=== PATIENT | female | born 1970 | race Caucasian/White ===

== ENCOUNTER 2020-11-20 12:38 | Outpatient (NON) | payer OTHER, SELFPAY ==
[2020-11-20 23:29] LABS: SARS-CoV-2 RNA PCR Negative
== END 2020-11-20 12:39 ==
PROVIDERS: PCP Family Medicine; Visit Provider Physician Assistant
DX: R50.9 Fever, unspecified (principal); Z20.822 Contact with and (suspected) exposure to COVID-19
CPT/HCPCS: C9803; U0003

== ENCOUNTER 2022-03-17 02:32 | Day surgery (SDC) | payer BC, SELFPAY ==
[2022-03-05 14:00] VITALS: BMI 73.6
[2022-03-17 08:18] VITALS: BP 170/98; PULSE 88; RESP 20; TEMP 36.8; O2SAT 99
--- NOTE | 2022-03-17 08:36 | WPDANESEPPF ---
Anes - Initial Pre Proc Eval Procedure: Operation Date: 03/17/22 09:15 Proposed Procedures p Screening Colonoscopy - Nathan Reyes MD Date/Time: 03/17/22 08:36 Surgeon: Nathan Reyes MD Pre Op Diagnosis: neoplasm screening Patient Data Age: 51 Gender: F Height: 1.6 m Weight: 185.7 kg Last Vital Signs Temp 98.3 F 03/17/22 08:18 Pulse 88 03/17/22 08:18 Resp 20 03/17/22 08:18 BP 170/98 H 03/17/22 08:18 Pulse Ox 99 03/17/22 08:18 Allergies Allergy/AdvReac Type Severity Reaction Status Date / Time hydrocodone Allergy Severe Hallucinati Verified 03/17/22 08:16 ng Penicillins Allergy Severe throat Verified 03/17/22 08:16 swelling fish derived Allergy Intermediate Swelling Verified 03/17/22 08:16 of Lip/Tongue/Throat dog dander Allergy Mild Dry Eye Verified 03/17/22 08:16 AHKEE Allergy Mild THROAT Uncoded 03/17/22 08:16 SWELLING Home Medications Medication Instructions Recorded Confirmed Type bupropion HCl 300 mg 24 hr tablet, 300 mg PO QAM #90 tablet 04/17/21 03/05/22 Rx extended release metoprolol succinate 200 mg 200 mg PO DAILY #90 tablet 12/30/21 03/17/22 Rx tablet,extended release 24 hr fluticasone propionate 2 spray INTRANASAL DAILY PRN 03/05/22 03/05/22 History hydrochlorothiazide 12.5 mg PO DAILY 03/05/22 03/05/22 History lisinopril 10 mg PO DAILY 03/05/22 03/17/22 History uumexobg-maj-kgac-FA-lutein 1 tablet PO DAILY 03/06/22 03/06/22 History [Centrum Silver Women] omega-3 fatty acids [Fish Oil] 1,000 mg PO DAILY 03/06/22 03/06/22 History turmeric 400 mg PO DAILY 03/06/22 03/06/22 History vitamin E 400 unit PO DAILY 03/06/22 03/06/22 History Patient hx anesthesia problems: none Family hx anesthesia problems: none Results Review: All pre-operative results and documents have been reviewed as part of the pre-operative evaluation. [facility] Past Medical History Medical History (Updated 03/14/22 @ 15:55 by Qamar Roper DO) Anxiety Asthma Calculus of GB w/ obst w/o cystitis COVID-19 Depression Diffuse cystic mastopathy Eating disorder, unspecified Essential (primary) hypertension Family history of colonic polyps Mitral valve disorder Mixed hyperlipidemia DREW (obstructive sleep apnea) Surgical History Surgical History (Updated 03/14/22 @ 15:55 by Qamar Roper DO) History of appendectomy History of cholecystectomy Family History Family History (Reviewed 12/30/21 @ 11:13 by Anushka Okeefe [facility]) Father Family history of lung cancer Patient's father is in good health Malignant neoplasm of prostate Mother Family history of malignant neoplasm of thyroid Family history of colonic diverticulitis Other Carcinoma of colon Diabetes mellitus Social History Social History (System 02/20/22 @ 13:50 by Dorene Lanza) Smoking status: Never smoker Alcohol intake: current Substance use: never Substance use type: does not use Living arrangements: with family Spiritual care concerns: No Anes - Eval Final PreProcedure Day of Procedure 03/17/22 08:36 Patient weight: super morbidly obese (super super morbid obesity) Heart: regular rate and rhythm Lungs: clear to auscultation Airway: Mallampati scale class III Neurological: alert and oriented Last oral intake: >/= 8 hours ASA classification: IV Emergent: no Anesthetic plan: proceed Anesthesia type and monitoring: general GIVS and standard monitoring Results Review: All pre-operative results and documents have been reviewed as part of the pre-operative evaluation. Informed Consent: The patient's anesthetic plan and its attendant risks and benefits were discussed with the patient/family/POA. Questions were solicited and answers provided to the satisfaction of the patient/family/POA.
[2022-03-17] MEDS: LACTATED RINGERS 1,000 ML 150 ML IV CONT (08:38)
--- NOTE | 2022-03-17 08:51 | PM.HPGS ---
History of Present Illness History of Present Illness Consent: Risks, benefits, and alternatives have been discussed and questions answered. Patient agrees to proceed with procedure. Chief complaint: neoplasm screening Narrative: Lalitha Rodrigues is a 51 year old female here for first screening colonoscopy, mother had colon cancer 12-13 years ago. Review of Systems Constitutional: Constitutional: Denies headache(s) and Denies weakness Eyes: Eyes: Denies blurry vision ENT: Reports Normal hearing present, Denies headache(s) and Denies neck pain Cardiovascular: Cardiovascular: Denies chest pain and Denies dyspnea Respiratory: Respiratory: Denies dyspnea Gastrointestinal: Gastrointestinal: Reports no additional gastrointestinal complaints Genitourinary: Genitourinary: Denies dysuria Musculoskeletal: Musculoskeletal: Denies neck pain Integumentary/Breasts: Skin/Breast: Denies dry skin Neurologic: Reports Normal hearing present, Denies headache(s) and Denies weakness Psychiatric: Psychiatric: Denies anxiety Endocrine: Endocrine: Denies change in body appearance Hematologic/Lymphatic: Hematologic/Lymphatic: Denies easy bleeding Allergic/Immunologic: Allergic/Immunologic: Denies urticaria PMFSH Past Medical History Medical History (Updated 03/17/22 @ 08:52 by Nathan Reyes MD) Anxiety Asthma Calculus of GB w/ obst w/o cystitis COVID-19 Depression Diffuse cystic mastopathy Eating disorder, unspecified Essential (primary) hypertension Family history of colon cancer in mother Family history of colonic polyps Mitral valve disorder Mixed hyperlipidemia DREW (obstructive sleep apnea) Surgical History Surgical History (Updated 03/14/22 @ 15:55 by Qamar Roper DO) History of appendectomy History of cholecystectomy Family History Family History (Reviewed 12/30/21 @ 11:13 by Anushka Okeefe [facility]) Father Family history of lung cancer Patient's father is in good health Malignant neoplasm of prostate Mother Family history of malignant neoplasm of thyroid Family history of colonic diverticulitis Other Carcinoma of colon Diabetes mellitus Social History Social History (System 02/20/22 @ 13:50 by Dorene Lanza) Smoking status: Never smoker Alcohol intake: current Substance use: never Substance use type: does not use Living arrangements: with family Spiritual care concerns: No Meds Home Medications and Allergies Home Medications Medication Instructions Recorded Confirmed Type bupropion HCl 300 mg 24 hr tablet, 300 mg PO QAM #90 tablet 04/17/21 03/05/22 Rx extended release metoprolol succinate 200 mg 200 mg PO DAILY #90 tablet 12/30/21 03/17/22 Rx tablet,extended release 24 hr fluticasone propionate 2 spray INTRANASAL DAILY PRN 03/05/22 03/05/22 History hydrochlorothiazide 12.5 mg PO DAILY 03/05/22 03/05/22 History lisinopril 10 mg PO DAILY 03/05/22 03/17/22 History ifuivmee-ztt-wfzu-FA-lutein 1 tablet PO DAILY 03/06/22 03/06/22 History [Centrum Silver Women] omega-3 fatty acids [Fish Oil] 1,000 mg PO DAILY 03/06/22 03/06/22 History turmeric 400 mg PO DAILY 03/06/22 03/06/22 History vitamin E 400 unit PO DAILY 03/06/22 03/06/22 History Allergies Allergy/AdvReac Type Severity Reaction Status Date / Time hydrocodone Allergy Severe Hallucinati Verified 03/17/22 08:16 ng Penicillins Allergy Severe throat Verified 03/17/22 08:16 swelling fish derived Allergy Intermediate Swelling Verified 03/17/22 08:16 of Lip/Tongue/Throat dog dander Allergy Mild Dry Eye Verified 03/17/22 08:16 AHKEE Allergy Mild THROAT Uncoded 03/17/22 08:16 SWELLING Vital Signs Vital Signs - 24 hr 03/17/22 08:18 Temperature 98.3 F Pulse Rate 88 Respiratory Rate 20 Blood Pressure 170/98 H Pulse Oximetry 99 Exam Const: General: comfortable and no acute distress HENMT: General nose exam: Normal nares present Eyes: General: a
[2022-03-17 09:16] VITALS: BP 129/75; PULSE 71; RESP 17; O2SAT 98
[2022-03-17 09:26] VITALS: BP 137/77; PULSE 72; RESP 20; O2SAT 97
[2022-03-17 09:36] VITALS: BP 148/76; PULSE 64; RESP 20; O2SAT 98
== END 2022-03-17 09:46 | disposition home or self-care (01) ==
PROVIDERS: PCP Family Medicine; Visit Provider Internal Medicine Gastroenterology
PROC: 0DJD8ZZ Inspection of Lower Intestinal Tract, Via Natural or Artificial Opening Endoscopic (ICD-10-PCS; CPT 45378; principal; 2022-03-17 09:15)
DX: Z12.11 Encounter for screening for malignant neoplasm of colon (principal); K63.5 Polyp of colon; K64.8 Other hemorrhoids; Z80.0 Family history of malignant neoplasm of digestive organs; I10 Essential (primary) hypertension; E78.2 Mixed hyperlipidemia; G47.33 Obstructive sleep apnea (adult) (pediatric); J45.909 Unspecified asthma, uncomplicated; F41.8 Other specified anxiety disorders; E66.01 Morbid (severe) obesity due to excess calories; Z68.45 Body mass index [BMI] 70 or greater, adult
CPT/HCPCS: 45385; 88305; J2704; J7120

== ENCOUNTER 2023-06-22 00:02 | Emergency (ER) | payer BC, SELFPAY ==
[2023-06-22] VITALS (16 sets, daily range): BP systolic 128–207; BP diastolic 60–86; PULSE 63–82; RESP 12–24; TEMP 36.6; O2SAT 94–100
--- NOTE | 2023-06-22 00:27 | ECG_ITS ---
Measurements Intervals [place] Rate: 62 P: 36 CT: 166 QRS: 11 QRSD: 104 T: 4 QT: 411 QTc: 421 Interpretive Statements SINUS RHYTHM NORMAL ECG NO PREVIOUS ECG AVAILABLE FOR COMPARISON Electronically Signed On 06-22-2023 10:26:02 CDT by Bhupendra Ruffin M.D.
[2023-06-22] MEDS: ACETAMINOPHEN 325 MG TABLET 650 MG PO (00:36)
--- NOTE | 2023-06-22 01:11 | ED.RECABL ---
HPI - Recheck/Abnormal Lab/Rx General Chief Complaint: Recheck/Abnormal Lab/Rx Stated Complaint: elevated blood pressure Time Seen by Provider: 06/22/23 00:10 Source: patient, RN notes reviewed and old records reviewed Mode of arrival: ambulatory Limitations: no limitations History of Present Illness HPI narrative: This is a 52 year old female with history of hypertension who presents for evaluation of elevated blood pressure. Patient states she checks for blood pressure multiple times a day. She reports this morning her blood pressure was systolic 160s. She checked it again at noon and it was 180s. She reports checked it again while at work and it continued to get higher so she came to ER. She denies chest pain, shortness of breath, dizziness, focal weakness. She reports mild frontal headache without blurred vision or deficits. She takes metoprolol 200 mg daily, lisinopril 10 mg and HCTZ 12.5 mg and her last doses were approximately 20 hours ago. Related Data Home Medications Medication Instructions Recorded Confirmed fluticasone propionate 50 2 spray intranasal DAILY PRN 03/05/22 03/05/22 mcg/actuation nasal Allergy Symptoms spray,suspension tbfpbgkz-lkey-vbih 8 mg-folic 400 1 tablet PO DAILY 03/06/22 03/06/22 mcg-K 50 mcg-lutein 300 mcg tablet (Centrum Silver Women) vitamin E 268 mg (400 unit) capsule 400 unit PO DAILY 03/06/22 03/06/22 Allergies Allergy/AdvReac Type Severity Reaction Status Date / Time hydrocodone Allergy Severe Hallucinati Verified 06/22/23 00:02 ng Penicillins Allergy Severe throat Verified 06/22/23 00:02 swelling fish derived Allergy Intermediate Swelling Verified 06/22/23 00:02 of Lip/Tongue/Throat dog dander Allergy Mild Dry Eye Verified 06/22/23 00:02 avocado AdvReac Abdominal Verified 06/22/23 00:02 Pain AHKEE Allergy Mild THROAT Uncoded 06/22/23 00:02 SWELLING Review of Systems Constitutional: Constitutional: Denies weakness Cardiovascular: Cardiovascular: Denies syncope, Denies rapid heart rate, Denies irregular heart rhythm, Denies leg edema and Denies dyspnea Respiratory: Respiratory: Denies chest congestion, Denies hemoptysis, Denies excessive phlegm production and Denies dyspnea Gastrointestinal: Gastrointestinal: Denies abdominal pain, Denies hematochezia, Denies diarrhea and Denies vomiting Genitourinary: Genitourinary: Denies hematuria and Denies dysuria Musculoskeletal: Musculoskeletal: Denies joint swelling, Denies loss of height and Denies muscle weakness Neurologic: Denies syncope, Denies focal weakness and Denies weakness PMFSH Past Medical History Medical History Abnormal maternal glucose tolerance, with delivery Anxiety Calculus of ureter COVID-19 Depression Diffuse cystic mastopathy Eating disorder, unspecified Family history of colon cancer in mother Tinnitus, unspecified ear Trichotillomania Surgical History Surgical History History of appendectomy History of cholecystectomy Family History Family History Father Family history of lung cancer Patient's father is in good health Malignant neoplasm of prostate Mother Family history of malignant neoplasm of thyroid Family history of colonic diverticulitis Other Carcinoma of colon Diabetes mellitus Social History Social History (Updated 01/01/23 @ 16:20 by Myles Herrmann MD) Smoking status: Never smoker Alcohol intake: current Substance use: never Substance use type: does not use Lack of Transportation: No Lack of Food: Never True Current Housing: I Have Housing Concerned About Future Housing: No Difficulty Paying Gas/Electric Bills: No Difficulty Paying for Meds: No Currently Unemployed: No Education: Bachelor's Degree Difficulty w/ Childcare or Family
[2023-06-22 01:17] LABS: Basophils Absolute Auto 0.1 K/mm3 (0.0-0.1); Basophils Percent Auto 0.6 % (0.2-1.2); Eosinophils Absolute Auto 0.4 K/mm3 (0-0.3); Eosinophils Percent Auto 4.5 % (0-4.4); Hematocrit 40.6 % (37.0-47.0); Hemoglobin 13.4 g/dL (12.0-15.0); Immature Granulocyte Absolute 0.03 K/mm3 (0.00-0.031); Immature Granulocyte Percent A 0.3 % (0-0.5); Lymphocytes Absolute Auto 1.93 K/mm3 (0.9-3.2); Lymphocytes Percent Auto 22.3 % (18.3-44.2); Mean Corpuscular Hemoglobin 30.5 pg (26-34); Mean Corpuscular Volume 92.5 fl (80-100); Mean Platelet Volume 10.5 fl (7.4-10.4); Monocytes Absolute Auto 0.8 K/mm3 (0.1-0.6); Monocytes Percent Auto 9.1 % (2.6-8.5); Neutrophils Absolute Auto 5.5 K/mm3 (1.3-6.7); Neutrophils Percent Auto 63.2 % (45.5-73.1); Platelet Count Result 265 k/mm3 (150-375); Red Blood Count 4.39 M/mm3 (4.2-5.4); Red Cell Distribution Width 13.3 % (11.5-14.5); White Blood Count 8.7 K/mm3 (4.5-10.0)
[2023-06-22 01:24] LABS: Appearance Urine Clear (Clear); Bacteria Urine 1+ /hpf; Bilirubin Urine Negative (Negative); Blood Urine Trace (Negative); Color Urine Yellow (Yellow); Glucose Urine UA Negative (Negative); Ketones Urine Trace mg/dL (Negative); Leukocyte Esterase Ur Trace LEU/UL (Negative); Nitrate Urine Negative (Negative); Non Pathogenic Casts 0-2; Protein Urine Trace mg/dL (Negative); Specific Grav Ur 1.025 (1.001-1.035); Squamous Epithelial Cell Urine Occasional /hpf (Few); Urobilinogen Urine 0.2 mg/dL (<2.0); pH Urine 5.5 (5.0-9.0)
[2023-06-22 01:25] LABS: Alanine Aminotransferase 28 U/L (6-35); Alkaline Phosphatase 69 U/L (38-126); Anion Gap 7 mmol/L (8-16); Aspartate Amino Transferase 25 U/L (14-36); Bilirubin,Total 0.5 mg/dL (0.2-1.3); Blood Urea Nitrogen 14 mg/dL (7-17); Calcium 9.3 mg/dL (8.4-10.2); Carbon Dioxide 29 mmol/L (22-30); Chloride 102 mmol/L (98-107); Estimated CRCL calculation 104 ml/min; Estimated Glomerular Filt Rate > 60; Glucose 114 mg/dL (65-110); Potassium 3.8 mmol/L (3.4-5.0); Sodium 138 mmol/L (137-145)
[2023-06-22 01:27] LABS: Add Urine Microscopic? YES
== END 2023-06-22 02:41 | disposition home or self-care (01) ==
PROVIDERS: Emergency Provider General Practice; PCP Family Medicine
DX: I10 Essential (primary) hypertension (principal); Z79.899 Other long term (current) drug therapy
CPT/HCPCS: 36415; 80053; 81001; 85025; 87086; 87088; 93005; 99283; A9270

== ENCOUNTER 2023-06-29 10:11 | Outpatient (CLI) | payer BC, SELFPAY ==
[2023-06-29 13:05] LABS: Basophils Absolute Auto 0.1 K/mm3 (0.0-0.1); Basophils Percent Auto 0.8 % (0.2-1.2); Eosinophils Absolute Auto 0.6 K/mm3 (0-0.3); Eosinophils Percent Auto 5.4 % (0-4.4); Hematocrit 43.8 % (37.0-47.0); Hemoglobin 14.2 g/dL (12.0-15.0); Immature Granulocyte Absolute 0.09 K/mm3 (0.00-0.031); Immature Granulocyte Percent A 0.9 % (0-0.5); Lymphocytes Absolute Auto 2.88 K/mm3 (0.9-3.2); Lymphocytes Percent Auto 27.7 % (18.3-44.2); Mean Corpuscular HGB Conc 32.4 g/dl (32-36); Mean Corpuscular Hemoglobin 29.8 pg (26-34); Mean Corpuscular Volume 91.8 fl (80-100); Monocytes Absolute Auto 0.8 K/mm3 (0.1-0.6); Monocytes Percent Auto 7.8 % (2.6-8.5); Neutrophils Percent Auto 57.4 % (45.5-73.1); Platelet Count Result 322 k/mm3 (150-375); Red Blood Count 4.77 M/mm3 (4.2-5.4); Red Cell Distribution Width 13.4 % (11.5-14.5); White Blood Count 10.4 K/mm3 (4.5-10.0)
[2023-06-29 13:23] LABS: Alanine Aminotransferase 27 U/L (6-35); Albumin Level 4.3 g/dL (3.5-5.1); Alkaline Phosphatase 86 U/L (38-126); Anion Gap 7 mmol/L (8-16); Aspartate Amino Transferase 34 U/L (14-36); Bilirubin,Total 0.4 mg/dL (0.2-1.3); Blood Urea Nitrogen 20 mg/dL (7-17); Calcium 9.5 mg/dL (8.4-10.2); Carbon Dioxide 29 mmol/L (22-30); Chloride 101 mmol/L (98-107); Estimated Glomerular Filt Rate 58; Glucose 145 mg/dL (65-110); Potassium 3.7 mmol/L (3.4-5.0); Sodium 137 mmol/L (137-145)
[2023-06-29 16:20] LABS: Hemoglobin A1C 6.6 % (<5.7)
== END 2023-06-29 10:12 | disposition home or self-care (01) ==
LOC: ANHGOSHLAB 10:14
PROVIDERS: PCP Family Medicine; Visit Provider Physician Assistant
DX: E03.9 Hypothyroidism, unspecified (principal); E11.9 Type 2 diabetes mellitus without complications; K21.9 Gastro-esophageal reflux disease without esophagitis; Z79.899 Other long term (current) drug therapy
CPT/HCPCS: 36415; 80053; 83036; 84443; 85025

== ENCOUNTER 2023-07-15 00:48 | Day surgery (SDC) | payer BC, SELFPAY ==
[2023-07-07 08:13] VITALS: BMI 67.5
[2023-07-15 08:50] VITALS: BP 142/69; PULSE 72; RESP 18; TEMP 36.4; O2SAT 99; BMI 66.7
[2023-07-15 09:07] LABS: Glucose Point of Care 150 mg/dl (65-105)
[2023-07-15] MEDS: LACTATED RINGERS 1,000 ML 150 ML IV CONT (09:16)
--- NOTE | 2023-07-15 09:20 | WPDANESEPPF ---
Anes - Initial Pre Proc Eval Procedure: Operation Date: 07/15/23 10:00 Proposed Procedures p Esophagogastroduodenoscopy - Nathan Reyes MD Date/Time: 07/15/23 09:20 Surgeon: Nathan Reyes MD Pre Op Diagnosis: melena Patient Data Age: 52 Gender: F Height: 1.6 m Weight: 171 kg Last Vital Signs Temp 97.5 F L 07/15/23 08:50 Pulse 72 07/15/23 08:50 Resp 18 07/15/23 08:50 BP 142/69 H 07/15/23 08:50 Pulse Ox 99 07/15/23 08:50 O2 Del Method Room Air 07/15/23 08:50 Allergies Allergy/AdvReac Type Severity Reaction Status Date / Time hydrocodone Allergy Severe Hallucinati Verified 07/15/23 08:46 ng Penicillins Allergy Severe throat Verified 07/15/23 08:46 swelling fish derived Allergy Intermediate Swelling Verified 07/15/23 08:46 of Lip/Tongue/Throat dog dander Allergy Mild Dry Eye Verified 07/15/23 08:46 avocado AdvReac Abdominal Verified 07/15/23 08:46 Pain AHKEE Allergy Mild THROAT Uncoded 07/15/23 08:46 SWELLING Home Medications Medication Instructions Recorded Confirmed Type fluticasone propionate 50 2 spray intranasal DAILY PRN 03/05/22 07/15/23 History mcg/actuation nasal Allergy Symptoms spray,suspension iqhrwfgg-vshy-kpja 8 mg-folic 400 1 tablet PO DAILY 03/06/22 07/15/23 History mcg-K 50 mcg-lutein 300 mcg tablet (Centrum Silver Women) levothyroxine 100 mcg tablet 100 mcg PO DAILY #90 tabs 01/01/23 07/15/23 Rx (Synthroid) empagliflozin 25 mg tablet 25 mg PO QAM #90 tabs 03/30/23 07/15/23 Rx (Jardiance) hydrochlorothiazide 12.5 mg tablet 12.5 mg PO DAILY #90 tabs 03/30/23 07/15/23 Rx metformin 1,000 mg tablet,extended 1,000 mg PO BID #180 tabs 03/30/23 07/15/23 Rx release 24hr metoprolol succinate 200 mg 200 mg PO DAILY #30 tabs 03/30/23 07/15/23 Rx tablet,extended release 24 hr pantoprazole 40 mg tablet,delayed 40 mg PO QAM #90 tabs 06/29/23 07/15/23 Rx release Lactobacillus 1 cap PO DAILY 07/07/23 07/15/23 History acidophilus-Bifidobac.animalis 2.5 billion cell capsule (Daily Probiotic) bupropion HCl 300 mg 24 hr tablet, 300 mg PO DAILY 07/07/23 07/15/23 History extended release lisinopril 10 mg tablet 10 mg PO DAILY 07/07/23 07/15/23 History Laboratory Tests 07/15/23 08:57 POC Capillary Glucose 150 H mg/dl (65-105) Patient hx anesthesia problems: none Family hx anesthesia problems: none Results Review: All pre-operative results and documents have been reviewed as part of the pre-operative evaluation. [facility] Past Medical History Medical History Abnormal maternal glucose tolerance, with delivery Anxiety Calculus of ureter COVID-19 Depression Diffuse cystic mastopathy Eating disorder, unspecified Family history of colon cancer in mother Tinnitus, unspecified ear Trichotillomania Surgical History Surgical History History of appendectomy History of cholecystectomy Family History Family History Father Family history of lung cancer Patient's father is in good health Malignant neoplasm of prostate Mother Family history of malignant neoplasm of thyroid Family history of colonic diverticulitis Other Carcinoma of colon Diabetes mellitus Social History Social History Smoking status: Never smoker Alcohol intake: never Substance use: never Substance use type: does not use Lack of Transportation: No Lack of Food: Never True Current Housing: I Have Housing Concerned About Future Housing: No Difficulty Paying Gas/Electric Bills: No Difficulty Paying for Meds: No Currently Unemployed: No Education: Bachelor's Degree Difficulty w/ Childcare or Family Care: No Living arrangements: with
--- NOTE | 2023-07-15 09:40 | PM.HPGS ---
History of Present Illness History of Present Illness Consent: Risks, benefits, and alternatives have been discussed and questions answered. Patient agrees to proceed with procedure. Chief complaint: melena Narrative: Lalitha Rodrigues is a 52 year old female who had dark stools for about 1 week, now back to normal, blood work showed normal cbc, denies nsaid's, colonoscopy 2021 Review of Systems Constitutional: Constitutional: Denies headache(s) and Denies weakness Eyes: Eyes: Denies blurry vision ENT: Reports Normal hearing present, Denies headache(s) and Denies neck pain Cardiovascular: Cardiovascular: Denies chest pain and Denies dyspnea Respiratory: Respiratory: Denies dyspnea Gastrointestinal: Gastrointestinal: Reports no additional gastrointestinal complaints Genitourinary: Genitourinary: Denies dysuria Musculoskeletal: Musculoskeletal: Denies neck pain Integumentary/Breasts: Skin/Breast: Denies dry skin Neurologic: Reports Normal hearing present, Denies headache(s) and Denies weakness Psychiatric: Psychiatric: Denies anxiety Endocrine: Endocrine: Denies change in body appearance Hematologic/Lymphatic: Hematologic/Lymphatic: Denies easy bleeding Allergic/Immunologic: Allergic/Immunologic: Denies urticaria PMFSH Past Medical History Medical History Abnormal maternal glucose tolerance, with delivery Anxiety Calculus of ureter COVID-19 Depression Diffuse cystic mastopathy Eating disorder, unspecified Family history of colon cancer in mother Tinnitus, unspecified ear Trichotillomania Surgical History Surgical History History of appendectomy History of cholecystectomy Family History Family History Father Family history of lung cancer Patient's father is in good health Malignant neoplasm of prostate Mother Family history of malignant neoplasm of thyroid Family history of colonic diverticulitis Other Carcinoma of colon Diabetes mellitus Social History Social History Smoking status: Never smoker Alcohol intake: never Substance use: never Substance use type: does not use Lack of Transportation: No Lack of Food: Never True Current Housing: I Have Housing Concerned About Future Housing: No Difficulty Paying Gas/Electric Bills: No Difficulty Paying for Meds: No Currently Unemployed: No Education: Bachelor's Degree Difficulty w/ Childcare or Family Care: No Living arrangements: with family Gender identity (if verbalized by the patient): Female Spiritual care concerns: No Meds Home Medications and Allergies Home Medications Medication Instructions Recorded Confirmed Type fluticasone propionate 50 2 spray intranasal DAILY PRN 03/05/22 07/15/23 History mcg/actuation nasal Allergy Symptoms spray,suspension cfhlpmrf-bzhr-nnlg 8 mg-folic 400 1 tablet PO DAILY 03/06/22 07/15/23 History mcg-K 50 mcg-lutein 300 mcg tablet (Centrum Silver Women) levothyroxine 100 mcg tablet 100 mcg PO DAILY #90 tabs 01/01/23 07/15/23 Rx (Synthroid) empagliflozin 25 mg tablet 25 mg PO QAM #90 tabs 03/30/23 07/15/23 Rx (Jardiance) hydrochlorothiazide 12.5 mg tablet 12.5 mg PO DAILY #90 tabs 03/30/23 07/15/23 Rx metformin 1,000 mg tablet,extended 1,000 mg PO BID #180 tabs 03/30/23 07/15/23 Rx release 24hr metoprolol succinate 200 mg 200 mg PO DAILY #30 tabs 03/30/23 07/15/23 Rx tablet,extended release 24 hr pantoprazole 40 mg tablet,delayed 40 mg PO QAM #90 tabs 06/29/23 07/15/23 Rx release Lactobacillus 1 cap PO DAILY 07/07/23 07/15/23 History acidophilus-Bifidobac.animalis 2.5 billion cell capsule (Daily Probiotic) bupropion HCl 300 mg 24 hr tablet, 300 mg PO DAILY 07/07/23 07/15/23 History extended releas
[2023-07-15] MEDS: BENZOCAINE (*SP) 60 ML SPRAY CAN (HURRICAINE) 1 SPRAY MUCOUS MEM (09:49)
[2023-07-15 09:56] VITALS: BP 148/69; PULSE 77; RESP 15; O2SAT 100
[2023-07-15 10:06] VITALS: BP 147/86; PULSE 72; RESP 13; O2SAT 99
[2023-07-15 10:16] VITALS: BP 152/82; PULSE 60; RESP 17; O2SAT 100
== END 2023-07-15 10:33 | disposition home or self-care (01) ==
PROVIDERS: PCP Family Medicine; Visit Provider Internal Medicine Gastroenterology
PROC: 0DJ08ZZ Inspection of Upper Intestinal Tract, Via Natural or Artificial Opening Endoscopic (ICD-10-PCS; CPT 43235; principal; 2023-07-15 10:00)
DX: K92.1 Melena (principal); Z79.84 Long term (current) use of oral hypoglycemic drugs; F32.A Depression, unspecified; F41.9 Anxiety disorder, unspecified; E66.01 Morbid (severe) obesity due to excess calories; Z68.44 Body mass index [BMI] 60.0-69.9, adult
CPT/HCPCS: 43235; 82948; J2704; J7120

== ENCOUNTER 2023-08-11 15:52 | Outpatient (CLI) | payer BC, SELFPAY ==
--- NOTE | ~2023-08-11 | MM_ITS ---
EXAMINATION: MM screening tami BI w lashay HISTORY: Screening mammogram TECHNIQUE: Craniocaudal and mediolateral oblique 3-D tomosynthesis images were obtained and synthetic 2-D images were generated. CAD analysis was submitted and interpreted. COMPARISON: 08/05/2018 bilateral screening mammogram BREAST PARENCHYMAL COMPOSITION: There are scattered areas of fibroglandular density. FINDINGS: There is no evidence of suspicious mass, calcification, or architectural distortion to sugg est malignancy in either breast. There has been no suspicious interval change. IMPRESSION: 1. No mammographic evidence of malignancy. 2. Recommend routine screening mammography in one year. BI-RADS Category 1: Negative Reviewed, dictated and finalized at location A.
== END 2023-08-11 15:53 | disposition home or self-care (01) ==
PROVIDERS: PCP Family Medicine; Visit Provider Family Medicine
DX: Z12.31 Encounter for screening mammogram for malignant neoplasm of breast (principal)
CPT/HCPCS: 77063; 77067

== ENCOUNTER 2023-09-08 16:51 | Outpatient (CLI) | payer BC, SELFPAY ==
--- NOTE | ~2023-09-08 | US_ITS ---
EXAMINATION:US venous doppler LE LT INDICATION:Left leg swelling TECHNIQUE: Multiple grayscale, color flow and Doppler images of the left lower extremity deep venous systems were obtained and reviewed. COMPARISON:No prior studies for comparison. FINDINGS: The common femoral, superficial femoral and popliteal veins demonstrate normal respiratory variation, augmentation and compressibility. Color flow is also seen within the posterior tibial, gr eater saphenous and profunda veins. Peroneal vein not well visualized. IMPRESSION: 1: No lower extremity deep venous thrombosis. Reviewed, dictated and finalized at location L.
== END 2023-09-08 16:52 | disposition home or self-care (01) ==
PROVIDERS: PCP Family Medicine; Visit Provider Family Medicine
DX: M79.89 Other specified soft tissue disorders (principal)
CPT/HCPCS: 93971

== ENCOUNTER 2023-11-16 22:54 | Emergency (ER) | payer BC, SELFPAY ==
--- NOTE | ~2023-11-16 | XR_ITS ---
Left Knee Technique: AP, lateral, and sunrise views were obtained. Clinical History: Pain Findings: No fracture or dislocation is seen. Osseous alignment is anatomic. There is mild to moderat e tricompartmental spurring. Is mild nonspecific subcutaneous soft tissue edema. No joint effusion is seen. Impression: No fracture or dislocation. [id number] tricompartmental degenerative spurring. Reviewed, dictated and finalized at location . [employer] [employer] Impression: No fracture or dislocation. [id number] tricompartmental degenerative spurring.
[2023-11-16 22:56] VITALS: BP 194/96; PULSE 80; RESP 16; TEMP 36.6; O2SAT 94
[2023-11-16 23:51] VITALS: BP 156/83; PULSE 76; RESP 14; TEMP 37; O2SAT 97
[2023-11-17 00:30] VITALS: BP 150/74; PULSE 88; RESP 19; O2SAT 98
--- NOTE | 2023-11-17 00:52 | ED.GENADULT ---
HPI - General Adult General Chief complaint: Extremity Injury, Lower Stated complaint: left knee injury Time Seen by Provider: 11/16/23 23:56 History of Present Illness HPI narrative: This is a 53-year-old female presenting with left 5 pain. Patient slipped at work and felt a popping sensation in the back of her left knee/thigh. She has been able to ambulate since then but she is having difficulty bending over and sitting down as this causes significant pain. Patient is able ambulate. Onset (ago): unknown Related Data Home Medications Medication Instructions Recorded Confirmed fluticasone propionate 50 2 spray intranasal DAILY PRN 03/05/22 09/08/23 mcg/actuation nasal Allergy Symptoms spray,suspension [id number] 8 mg-folic 400 1 tablet PO DAILY 03/06/22 09/08/23 mcg-K 50 mcg-lutein 300 mcg tablet (Centrum Silver Women) Lactobacillus 1 cap PO DAILY 07/07/23 09/08/23 acidophilus-Bifidobac.animalis 2.5 billion cell capsule (Daily Probiotic) lisinopril 10 mg tablet 10 mg PO DAILY 07/07/23 09/08/23 Allergies Allergy/AdvReac Type Severity Reaction Status Date / Time hydrocodone Allergy Severe Hallucinati Verified 11/16/23 23:35 ng Penicillins Allergy Severe throat Verified 11/16/23 23:35 swelling fish derived Allergy Intermediate Swelling Verified 11/16/23 23:35 of Lip/Tongue/Throat dog dander Allergy Mild Dry Eye Verified 11/16/23 23:35 avocado AdvReac Abdominal Verified 11/16/23 23:35 Pain AHKEE Allergy Mild THROAT Uncoded 11/16/23 23:35 SWELLING PMFSH Past Medical History Medical History Abnormal maternal glucose tolerance, with delivery Anxiety Calculus of ureter COVID-19 Depression Diffuse cystic mastopathy Eating disorder, unspecified Family history of colon cancer in mother Tinnitus, unspecified ear Trichotillomania Surgical History Surgical History History of appendectomy History of cholecystectomy Family History Family History Father Family history of lung cancer Patient's father is in good health Malignant neoplasm of prostate Mother Family history of malignant neoplasm of thyroid Family history of colonic diverticulitis Other Carcinoma of colon Diabetes mellitus Social History Social History Smoking status: Never smoker Alcohol intake: never Substance use: never Substance use type: does not use Lack of Transportation: No Lack of Food: Never True Current Housing: I Have Housing Concerned About Future Housing: No Difficulty Paying Gas/Electric Bills: No Difficulty Paying for Meds: No Currently Unemployed: No Education: Bachelor's Degree Difficulty w/ Childcare or Family Care: No Living arrangements: with family Gender identity (if verbalized by the patient): Female Spiritual care concerns: No Exam Narrative: APPEARANCE: No apparent distress. Head: atraumatic. EYES: EOMI, NOSE: Atraumatic NECK: Trachea midline RESPIRATORY: No increased rate of breathing CARDIOVASCULAR: RRR, ABDOMINAL: Non-distended MUSCULOSKELETAl: Focal exam of the left lower extremity revealed significant chronic edema. She has tenderness to palpation over the distal medial hamstring. No bruising. Swelling is difficult to determine due to body habitus. She is able to extend and flex at the knee although flexion causes some pain. Foot is warm with normal cap refill. Unable to palpate pulses due to body habitus. NEURO: Alert. Moving 4/4 extremities SKIN:: Warm, dry. Normal color PSYCHIATRIC: Normal affect Course Vital Signs Vital signs: Vital Signs Temperature 97.9 F 11/16/23 22:56 Pulse Rate 80 11/16/23 22:56 Respiratory Rate 16 11/16/23 22:56 Blood Pressure 194/96
[2023-11-17] MEDS: ACETAMINOPHEN 500 MG TABLET 1000 MG PO (00:58)
[2023-11-17] MEDS: oxyCODONE HCL (*CRX) 5 MG TAB IR 10 MG PO (01:18)
[2023-11-17 02:30] VITALS: BP 131/87; PULSE 99; RESP 14; O2SAT 97
== END 2023-11-17 03:50 | disposition home or self-care (01) ==
PROVIDERS: Emergency Provider Emergency Medicine; PCP Family Medicine
DX: S76.802A Unspecified injury of other specified muscles, fascia and tendons at thigh level, left thigh, initial encounter (principal); N60.19 Diffuse cystic mastopathy of unspecified breast; Z87.442 Personal history of urinary calculi; Z86.16 Personal history of COVID-19; Z90.49 Acquired absence of other specified parts of digestive tract; W01.0XXA Fall on same level from slipping, tripping and stumbling without subsequent striking against object, initial encounter; Z79.84 Long term (current) use of oral hypoglycemic drugs
CPT/HCPCS: 73562; 99283; A9270